=== PATIENT | male | born 1990 | race Caucasian/White ===

== ENCOUNTER 2017-01-27 20:59 | Emergency (ER) | payer MEDICAID, OTHER ==
[~2017-01-27] VITALS: Ht 162.6 cm; Wt 73.0 kg
[2017-01-27 22:03] VITALS: BP 129/80
[2017-01-27] MEDS ORDERED: SODIUM CHLORIDE 0.9% 1,000 ML IV ONE (22:24)
[2017-01-27] MEDS ORDERED: TETANUS, DIPHTHERIA, PERTUSSIS VAC/PF 0.5ML (>7YR OLD) IM ONE (22:30)
[2017-01-27 23:17] LABS: BASOPHILS % 0.6 % (0.0-2.0); EOSINOPHILS % 0.9 % (0.0-5.0); HEMATOCRIT. 44.4 % (42.0-52.0); MEAN CORPUSCULAR HEMOGLOBIN 23.9 pg (28.0-32.0); MEAN CORPUSCULAR VOLUME 81.7 fL (80.0-94.0); MEAN PLATELET VOLUME 7.6 fl (7.4-10.4); MONOCYTES % 8.8 % (2.0-8.0); NEUTROPHILS % 75.7 % (40.0-76.0); PLATELET 183 x1000/uL (130-400); RED BLOOD CELL COUNT 5.44 mill/uL (4.7-6.1); RED CELL DISTRIBUTION WIDTH 15.9 % (11.6-14.6)
[2017-01-27 23:26] LABS: CHLORIDE 106 mEq/L (98-107)
[2017-01-27 23:29] LABS: CARBON DIOXIDE 22 mEq/L (21-32)
[2017-01-27 23:32] LABS: AMMONIA 18 uMol/L (<32)
[2017-01-27 23:35] LABS: ETHANOL BLOOD < 10 mg/dL
[2017-01-28 01:23] LABS: *AMPHETAMINES SCREEN URINE NEGATIVE (NEGATIVE); *BARBITURATES SCREEN URINE NEGATIVE (NEGATIVE); *BENZODIAZEPINES SCREEN URINE NEGATIVE (NEGATIVE); *COCAINE SCREEN URINE NEGATIVE (NEGATIVE); CANNABINOID URINE SCREEN NEGATIVE (NEGATIVE); METHADONE URINE SCREEN NEGATIVE (NEGATIVE); OPIATES URINE SCREEN PRESUMTIVE POSITIVE (NEGATIVE); PHENCYCLIDINE URINE SCREEN NEGATIVE (NEGATIVE)
== END 2017-01-28 00:15 | disposition left against medical advice (07) ==
LOC: ER 21:17
DX: F41.9 Anxiety disorder, unspecified (principal); R42 Dizziness and giddiness; R51 Headache; F11.10 Opioid abuse, uncomplicated; F17.200 Nicotine dependence, unspecified, uncomplicated
CPT/HCPCS: 36415; 70450; 80053; 80305; 82140; 85025; 90471; 90715; 99285; G0482; J7030; Z7610

== ENCOUNTER 2018-07-30 09:53 | Emergency (ER) | payer OTHER ==
[~2018-07-30] VITALS: Ht 172.7 cm; Wt 70.0 kg
[2018-07-30] MEDS ORDERED: SODIUM CHLORIDE 0.9% 1,000 ML IV ONE (10:07)
[2018-07-30] MEDS ORDERED: ONDANSETRON HCL 4MG/2ML INJ IV ONE (10:15)
[2018-07-30] MEDS ORDERED: LORAZEPAM 1MG TABLET PO ONE (10:15)
[2018-07-30 12:12] LABS: *AMPHETAMINES SCREEN URINE NEGATIVE (NEGATIVE); *BARBITURATES SCREEN URINE NEGATIVE (NEGATIVE); *BENZODIAZEPINES SCREEN URINE NEGATIVE (NEGATIVE); *COCAINE SCREEN URINE PRESUMTIVE POSITIVE (NEGATIVE); METHADONE URINE SCREEN NEGATIVE (NEGATIVE); OPIATES URINE SCREEN NEGATIVE (NEGATIVE)
[2018-07-30 12:13] LABS: CANNABINOID URINE SCREEN NEGATIVE (NEGATIVE); PHENCYCLIDINE URINE SCREEN NEGATIVE (NEGATIVE)
[2018-07-30 12:46] VITALS: BP 128/88
== END 2018-07-30 12:48 | disposition home or self-care (01) ==
LOC: ER 09:53
DX: T40.5X1A Poisoning by cocaine, accidental (unintentional), initial encounter (principal); T40.4X1A Poisoning by other synthetic narcotics, accidental (unintentional), initial encounter; Y92.89 Other specified places as the place of occurrence of the external cause
CPT/HCPCS: 36415; 80305; 80320; 96374; 99283; J2405; J7030; G0480

== ENCOUNTER 2024-04-22 08:51 | Emergency (ER) | payer OTHER ==
[~2024-04-22] VITALS: Ht 175.3 cm; Wt 91.0 kg
[2024-04-22 08:56] VITALS: BP 153/86; PULSE 90; RESP 18; TEMP 99.1; O2SAT 99
[2024-04-22] MEDS ORDERED: ONDANSETRON HCL 8MG TABLET PO ONE (10:00)
[2024-04-22] MEDS: DIAZEPAM 5 MG TABLET PO SCH (11:21)
[2024-04-22] MEDS: ONDANSETRON HCL 4MG TABLET PO NR (11:21)
[2024-04-22 12:30] LABS: CHLORIDE 106 mEq/L (98-107); POTASSIUM 3.9 mEq/L (3.5-5.1); SODIUM 140 mEq/L (136-145)
[2024-04-22 12:31] LABS: CARBON DIOXIDE 28 mEq/L (21-32)
[2024-04-22 12:32] LABS: CALCIUM 9.5 mg/dL (8.7-10.4)
[2024-04-22 12:36] LABS: CREATININE 0.9 mg/dL (0.6-1.3); GLUCOSE 117 mg/dL (70-105); UREA NITROGEN BLOOD 10 mg/dL (9-23)
[2024-04-22 12:37] LABS: BASOPHILS % 0.6 % (0.0-2.0); EOSINOPHILS % 0.5 % (0.0-5.0); HEMOGLOBIN. 14.6 g/dL (14.0-18.0); LYMPHOCYTES % 11.9 % (20.0-50.0); MEAN CORPUSCULAR HEMOGLOBIN 29.3 pg (28.0-32.0); MEAN CORPUSCULAR HGB CONC 33.1 g/dL (31.0-37.0); MEAN CORPUSCULAR VOLUME 88.7 fL (80.0-94.0); MEAN PLATELET VOLUME 7.4 fl (7.4-10.4); MONOCYTES % 6.1 % (2.0-8.0); NEUTROPHILS % 80.9 % (40.0-76.0); PLATELET 277 x1000/uL (130-400); RED BLOOD CELL COUNT 4.96 mill/uL (4.7-6.1); RED CELL DISTRIBUTION WIDTH 13.7 % (11.6-14.6); WHITE BLOOD COUNT 12.3 x1000/uL (4.5-11.0)
[2024-04-22] MEDS: DIAZEPAM 5 MG TABLET PO ONE (13:01)
== END 2024-04-22 14:22 | disposition home or self-care (01) ==
LOC: ER 08:51
DX: F41.9 Anxiety disorder, unspecified (principal)
CPT/HCPCS: 99284; 80048; 85025; 36415; 93005; Q0162